=== PATIENT | male | born 1950 | race Caucasian/White ===

== ENCOUNTER 2020-05-17 14:21 | Emergency (ER) | payer MEDICARE, SELFPAY ==
--- NOTE | 2020-05-17 14:33 | ED.URI ---
HPI - URI/Sore Throat General Chief Complaint: Upper Respiratory Infection Stated Complaint: sore throat Time Seen by Provider: 05/17/20 14:40 Source: patient and RN notes reviewed Mode of arrival: ambulatory Limitations: no limitations History of Present Illness HPI Narrative: 70-year-old male presents with concern for sore throat. Reports sore throat for 4 days, taking Zyrtec and Benadryl. Denies fever, nasal congestion, ear pain, cough, shortness of breath. Reports rhinorrhea. MD elicited complaint: sore throat Related Data Home Medications Medication Instructions Recorded Confirmed carvedilol 12.5 mg tablet 12.5 mg PO Q12H 10/12/19 05/17/20 clopidogrel 75 mg tablet 75 mg PO DAILY 10/12/19 05/17/20 Allergies Allergy/AdvReac Type Severity Reaction Status Date / Time No Known Allergies Allergy Unknown Verified 04/16/20 13:57 Review of Systems Review of Systems: Narrative: CONSTITUTIONAL: Denies malaise, chills, sweats, or fever. EYES: Denies visual changes, redness, or discharge. ENT: Reports rhinorrhea, sore throat. Denies congestion, sinus pain, otalgia. CARDIOVASCULAR: Denies chest pain, palpitations, or edema. RESPIRATORY: Denies cough or dyspnea. GASTROINTESTINAL: Denies abdominal pain, nausea, vomiting, diarrhea SKIN: Denies rash or itching. MUSCULOSKELETAL: Denies myalgia. NEUROLOGIC: Denies headache. All systems reviewed & are unremarkable except as noted in HPI and below PMFSH Social History Social History Smoking status: Never smoker Second hand tobacco smoke exposure: Yes Alcohol intake: current Substance use: never Gender identity (if verbalized by the patient): Male Comments At time of signature, agree with nursing past medical, surgical, social and family history. There is no relevant family history pertinent to the presenting complaint Exam Narrative: Exam Narrative: GENERAL: Well-appearing, well-nourished, and in no acute distress. HEAD: Normocephalic EYES: PERRLA, conjunctivae clear ENT: Nares clear, turbinates edematous and erythematous, clear discharge, postnasal drainage. Mucous membranes moist. TM pearly gaines with dull light reflex bilaterally; no tragal tenderness. Oropharynx mildly erythematous without lesions. Tonsils not enlarged and without exudate, no drooling, no hoarseness, no trismus, uvula midline. NECK: Supple. No lymphadenopathy CHEST: Clear to auscultation, breath sounds equal. No wheezing, rhonchi, rales, or stridor. No respiratory distress, speaks in full sentences. HEART: Regular rate and rhythm. No murmur heard. SKIN: Warm, dry, no rash. NEURO: Alert and oriented x3. PSYCH: Normal mood and affect Course Course Emergency Course: Patient is aware of diagnosis, understands and agrees to treatment plan. Anticipatory guidance given. Patient agrees to follow-up as directed and is aware of reasons to seek care at the emergency department. Portions of this record may have been created with voice recognition software Vital Signs Vital signs: Vital Signs Temperature 96.0 F L 05/17/20 14:35 Pulse Rate 79 05/17/20 14:35 Respiratory Rate 16 05/17/20 14:35 Blood Pressure 158/81 H 05/17/20 14:35 Pulse Oximetry 98 05/17/20 14:35 Temperature 96.0 F L 05/17/20 14:35 Pulse Rate 79 05/17/20 14:35 Respiratory Rate 16 05/17/20 14:35 Blood Pressure 158/81 H 05/17/20 14:35 Pulse Oximetry 98 05/17/20 14:35 Reviewed. Patient has history of hypertension MDM - URI/Sore Throat MDM Narrative Medical decision making narrative: Differential diagnosis considered: Strep pharyngitis, allergic rhinitis, upper respiratory tract infection, sinusitis, rhinosinusitis, nasopharyngitis. viral pharyngitis, otitis media, otitis externa, pneumonia, bronchitis, viral cough syndrome, viral syndrome, and influenza. Exam findings show no acute concerns or changes; patient is non-toxic appearing and is in no dist
[2020-05-17 14:35] VITALS: BP 158/81; PULSE 79; RESP 16; TEMP 35.6; O2SAT 98
== END 2020-05-17 14:57 | disposition home or self-care (01) ==
PROVIDERS: Emergency Provider Nurse Practitioner; PCP Internal Medicine
DX: J02.9 Acute pharyngitis, unspecified (principal); I25.10 Atherosclerotic heart disease of native coronary artery without angina pectoris; Z95.5 Presence of coronary angioplasty implant and graft; E78.00 Pure hypercholesterolemia, unspecified; I10 Essential (primary) hypertension
CPT/HCPCS: 99213; G0463

== ENCOUNTER 2020-05-25 07:15 | Emergency (ER) | payer MEDICARE, SELFPAY ==
[2020-05-25 07:18] VITALS: BP 193/98; PULSE 89; RESP 18; TEMP 36.6; O2SAT 98
--- NOTE | 2020-05-25 07:58 | ED.MALEGU ---
HPI - Male Genitourinary General Chief complaint: Urogenital-Male Stated complaint: unable to urinate Time Seen by Provider: 05/25/20 07:38 History of Present Illness HPI Narrative: He has not been able to urinate since about 12 AM. He now has modate suprapubic pain and sensation that he needs to urinate. He has had similar symptoms in the past and require a zepeda catheter. Related Data Home Medications Medication Instructions Recorded Confirmed carvedilol 12.5 mg tablet 12.5 mg PO Q12H 10/12/19 05/17/20 clopidogrel 75 mg tablet 75 mg PO DAILY 10/12/19 05/17/20 Allergies Allergy/AdvReac Type Severity Reaction Status Date / Time No Known Allergies Allergy Unknown Verified 05/25/20 07:21 Review of Systems Review of Systems: All systems reviewed & are unremarkable except as noted in HPI and below Constitutional: Constitutional: Denies fever(s) Cardiovascular: Cardiovascular: Denies chest pain Respiratory: Respiratory: Denies dyspnea Gastrointestinal: Gastrointestinal: Reports abdominal pain Genitourinary: Genitourinary: Denies hematuria and Denies dysuria [facility] Past Medical History Medical History Enlarged prostate Surgical History Surgical History History of prostate surgery Family History Family History Mother Family history of malignant neoplasm of ovary, Onset Age: 65 Patient's mother is , Onset Age: 65 Father Patient's father is , Onset Age: 70 Other Family history of allergic disorder Hypertension Social History Social History Smoking status: Never smoker Second hand tobacco smoke exposure: Yes Alcohol intake: current Substance use: never Gender identity (if verbalized by the patient): Male Exam Const: General: healthy appearing, no acute distress and alert Orientation/consciousness: patient oriented x3 HENMT: Head: normal to inspection Neck: Neck: normal visual inspection and no lymphadenopathy Chest: Chest palpation & inspection: no tenderness Resp: Effort & Inspection: normal respiratory effort Auscultation: clear to auscultation bilaterally, no rales, no rhonchi and no wheezes Cardio: Jugular venous distension: no JVD Rate: regular rate Rhythm: regular rhythm Heart sounds: no murmurs GI: Inspection: non-distended GI Palp: Yes Soft to palpation : General: Yes Bladder palpation abnormal distended and tender Skin: General skin exam: normal color Neuro: General: patient oriented x3 and moves all extremities Speech: normal speech Extrem: General: no edema Psych: Appearance: well kempt Affect: normal affect Course Vital Signs Vital signs: Vital Signs Temperature 36.6 C 05/25/20 07:18 Pulse Rate 89 05/25/20 07:18 Respiratory Rate 18 05/25/20 07:18 Blood Pressure 193/98 H 05/25/20 07:18 Pulse Oximetry 98 05/25/20 07:18 Temperature 36.6 C 05/25/20 07:18 Pulse Rate 86 05/25/20 10:48 Respiratory Rate 14 05/25/20 10:48 Blood Pressure 191/85 H 05/25/20 10:48 Pulse Oximetry 98 05/25/20 10:48 MDM - Male Genitourinary MDM Narrative Medical decision making narrative: Catheterization was attempted by the nurse. I asked for a larger size catheter and was told that we did not have any in the hospital. I called to consult the urologist and he said that if we do not have any there would be no point in him coming in. Eventually a larger size catheter was obtained. By that time the patient had gottent dressed and left the emergency department. Discharge Plan Discharge Clinical Impression: BPH with urinary obstruction Patient Disposition: [facility]op[facility] Ater Seen by Prov Condition: Stable Prescriptions: No Action ipratropium bromide 0.03 % spray,non-
--- NOTE | 2020-05-25 09:00 | PC.NURSE ---
Attempted to place zepeda catheter with 16Fr, without success. Attempted to use coude, without success. EDP made aware.
[2020-05-25 10:48] VITALS: BP 191/85; PULSE 86; RESP 14; O2SAT 98
--- NOTE | 2020-05-25 11:17 | PC.NURSE ---
Went to room to give bedside report to oncoming nurse, patient gone along with belongings. warehouse guard confirmed patient walked out fully dressed at approx 1105. EDP made aware.
== END 2020-05-25 11:22 ==
PROVIDERS: Emergency Provider Emergency Medicine; PCP Internal Medicine
DX: N40.1 Benign prostatic hyperplasia with lower urinary tract symptoms (principal); N13.8 Other obstructive and reflux uropathy
CPT/HCPCS: 51702; 99283

== ENCOUNTER 2021-05-25 17:52 | Emergency (ER) | payer MEDICARE, SELFPAY ==
[2021-05-25] VITALS (7 sets, daily range): BP systolic 150–197; BP diastolic 80–110; PULSE 59–64; RESP 12–20; TEMP 36.7; O2SAT 97–100
--- NOTE | 2021-05-25 18:25 | ECG_ITS ---
Measurements Intervals [place] Rate: 59 P: 63 TN: 169 QRS: 10 QRSD: 84 T: 79 QT: 424 QTc: 421 Interpretive Statements SINUS BRADYCARDIA BORDERLINE ST-T WAVE ABNORMALITY- ANTEROLAT/HIGH LAT LEADS BORDERLINE ECG Electronically Signed On 05-26-2021 9:28:54 CDT by Jc Ashton D.O.
[2021-05-25 18:46] LABS: Basophils Absolute Auto 0.1 K/mm3 (0.0-0.1); Basophils Percent Auto 0.8 % (0.2-1.2); Eosinophils Absolute Auto 0.4 K/mm3 (0-0.3); Eosinophils Percent Auto 6.1 % (0-4.4); Hematocrit 31.5 % (42.0-52.0); Hemoglobin 10.7 g/dL (14.0-18.0); Immature Granulocyte Absolute 0.02 K/mm3 (0.00-0.031); Immature Granulocyte Percent A 0.3 % (0-0.5); Lymphocytes Absolute Auto 1.04 K/mm3 (0.9-3.2); Lymphocytes Percent Auto 15.9 % (18.3-44.2); Mean Corpuscular Hemoglobin 32.7 pg (26-34); Mean Corpuscular Volume 96.3 fl (80-100); Mean Platelet Volume 10.1 fl (7.4-10.4); Monocytes Absolute Auto 0.5 K/mm3 (0.1-0.6); Neutrophils Absolute Auto 4.5 K/mm3 (1.3-6.7); Neutrophils Percent Auto 68.9 % (45.5-73.1); Platelet Count Result 164 k/mm3 (150-375); Red Blood Count 3.27 M/mm3 (4.6-6.20); Red Cell Distribution Width 13.2 % (11.5-14.5); White Blood Count 6.5 K/mm3 (4.5-10.0)
[2021-05-25 18:58] LABS: Alanine Aminotransferase 15 U/L (4-50); Albumin Level 3.8 g/dL (3.5-5.1); Alkaline Phosphatase 96 U/L (38-126); Anion Gap 9 mmol/L (8-16); Aspartate Amino Transferase 33 U/L (17-59); Bilirubin,Total 0.5 mg/dL (0.2-1.3); Blood Urea Nitrogen 14 mg/dL (9-20); Calcium 9.1 mg/dL (8.4-10.2); Carbon Dioxide 28 mmol/L (22-30); Chloride 104 mmol/L (98-107); Estimated CRCL calculation 58 ml/min; Estimated Glomerular Filt Rate > 60; Glucose 127 mg/dL (75-110); Potassium 3.1 mmol/L (3.4-5.0); Sodium 141 mmol/L (137-145)
[2021-05-25] MEDS: POTASSIUM CHLORIDE 20 MEQ TABLET 40 MEQ PO (22:27)
[2021-05-25] MEDS: KCL 20 MEQ/SW 100 ML 100 ML 50 MEQ IVPB (22:28)
--- NOTE | 2021-05-25 23:36 | ED.GENADULT ---
HPI - General Adult General Chief complaint: Recheck/Abnormal Lab/Rx Stated complaint: Low Potassium level Time Seen by Provider: 05/25/21 22:02 History of Present Illness HPI narrative: Patient is a 69-year-old gentleman who presents emerged from chief complaint of hyperkalemia. Patient reports that he had blood drawn today since he been receiving IV antibiotics as an outpatient. Patient reports that they called him and told him that his potassium was two-point something and she go to the emergency department to have his potassium treated. Currently the patient states he is not having any symptoms with this denies any complaint. Related Data Home Medications Medication Instructions Recorded Confirmed carvedilol 12.5 mg tablet 12.5 mg PO Q12H 10/12/19 12/24/20 clopidogrel 75 mg tablet 75 mg PO DAILY 10/12/19 12/24/20 Allergies Allergy/AdvReac Type Severity Reaction Status Date / Time No Known Allergies Allergy Unknown Verified 05/25/21 20:22 Review of Systems Review of Systems: Narrative: A 10 system review of systems was completed on the patient and is negative except for what is stated in the HPI. Nursing and ancillary documentation was reviewed. [facility] Past Medical History Medical History (Updated 05/25/21 @ 23:38 by Devonte Carrillo MD) Enlarged prostate Surgical History Surgical History History of prostate surgery Family History Family History Mother Family history of malignant neoplasm of ovary, Onset Age: 65 Patient's mother is , Onset Age: 65 Father Patient's father is , Onset Age: 70 Other Family history of allergic disorder Hypertension Social History Social History Smoking status: Never smoker Second hand tobacco smoke exposure: Yes Alcohol intake: current Substance use: never Gender identity (if verbalized by the patient): Male Exam Narrative: Exam Narrative: GENERAL: Well-appearing, well-nourished, and in no acute distress. HEAD: Normocephalic, atraumatic. EYES: PERRLA and EOMI. ENT: Nares clear, no rhinorrhea or epistaxis. Mucous membranes moist. NECK: Supple. CHEST: Clear to auscultation. No respiratory distress. HEART: Regular rate and rhythm. No murmur heard. Normal peripheral pulses. ABDOMEN: Soft, nontender, nondistended, normal active bowel sounds. EXTREMITIES: Normal range of motion. No edema. There is a PICC line present in the right upper extremity SKIN: Warm, dry, no rash. NEURO: No focal deficits. Alert and oriented x3. PSYCH: Normal mood and affect. Course Vital Signs Vital signs: Vital Signs Temperature 36.7 C 05/25/21 18:20 Pulse Rate 59 L 05/25/21 18:20 Respiratory Rate 16 05/25/21 18:20 Blood Pressure 150/110 H 05/25/21 18:20 Pulse Oximetry 99 05/25/21 18:20 Temperature 36.7 C 05/25/21 20:19 Pulse Rate 62 05/25/21 22:35 Respiratory Rate 12 05/25/21 22:35 Blood Pressure 197/85 H 05/25/21 22:35 Pulse Oximetry 100 05/25/21 22:35 Medical Decision Making Vital Signs Vital Signs: Vital Signs Temperature 36.7 C 05/25/21 18:20 Pulse Rate 59 L 05/25/21 18:20 Respiratory Rate 16 05/25/21 18:20 Blood Pressure 150/110 H 05/25/21 18:20 Pulse Oximetry 99 05/25/21 18:20 Temperature 36.7 C 05/25/21 20:19 Pulse Rate 62 05/25/21 22:35 Respiratory Rate 12 05/25/21 22:35 Blood Pressure 197/85 H 05/25/21 22:35 Pulse Oximetry 100 05/25/21 22:35 Lab Data Result diagrams: 05/25/21 18:38 05/25/21 18:38 Labs: Lab Results 05/25/21 05/25/21 Range/Units 18:38 18:38 WBC 6.5 (4.5-10.0) K/mm3 RBC 3.27 L (4.6-6.20) M/mm3 Hgb 10.7 L (14.0-18.0) g/dL Hct 31.5 L (42.0-52.0) % MCV 96.3 (80-100) fl MCH 3
[2021-05-26 00:54] VITALS: BP 195/98; PULSE 78; RESP 18; O2SAT 100
== END 2021-05-26 00:55 | disposition home or self-care (01) ==
PROVIDERS: Emergency Medicine; Emergency Provider Emergency Medicine; PCP Internal Medicine
DX: E87.6 Hypokalemia (principal); I25.10 Atherosclerotic heart disease of native coronary artery without angina pectoris; I10 Essential (primary) hypertension
CPT/HCPCS: 36415; 80053; 85025; 93005; 96365; 96366; 99284; A9270; J3480

== ENCOUNTER 2022-03-15 16:51 | Observation (INO) | payer MEDICARE, SELFPAY ==
[2022-03-15] VITALS (16 sets, daily range): BP systolic 78–156; BP diastolic 47–106; PULSE 64–76; RESP 11–21; TEMP 36.4–36.7; O2SAT 95–100
--- NOTE | ~2022-03-15 | US_ITS ---
EXAMINATION: US renal BI DATE: 03/16/2022 08:26 INDICATION: Acute kidney injury. TECHNIQUE: Multiple ultrasound grayscale images of the kidneys were obtained. COMPARISON: CT abdomen and pelvis 04/10/2015 FINDINGS: The right kidney measures 11.8 x 4.6 x 6.3 cm. The left kidney measures 12.1 x 4.0 x 6.6 cm. The kidn eys demonstrate normal parenchymal echogenicity. There is no hydronephrosis. The bladder is normal. T he prostate is moderately enlarged. IMPRESSION: 1. Normal kidneys. No hydronephrosis. 2. Moderately enlarged prostate. Reviewed, dictated and finalized at location A.
--- NOTE | 2022-03-15 17:40 | ECG_ITS ---
Measurements Intervals [place] Rate: 71 P: 7 ND: 147 QRS: 32 QRSD: 89 T: 57 QT: 406 QTc: 443 Interpretive Statements SINUS RHYTHM MINIMAL ST DEPRESSION [0.025+ mV ST DEPRESSION] COMPARED TO ECG 05/25/2021 18:31:00 SINUS RHYTHM NOW PRESENT Nonspecific ST (T WAVE) DEVIATION NOW PRESENT Electronically Signed On 03-17-2022 13:10:30 CDT by Renetta Fowler M.D.
[2022-03-15] MEDS: SODIUM CHLORIDE 0.9% IV 1,000 ML 999 ML (17:43)
[2022-03-15 17:48] LABS: Basophils Percent Auto 0.2 % (0.2-1.2); Eosinophils Percent Auto 0.3 % (0-4.4); Hematocrit 42.3 % (42.0-52.0); Hemoglobin 14.3 g/dL (14.0-18.0); Immature Granulocyte Absolute 0.01 K/mm3 (0.00-0.031); Immature Granulocyte Percent A 0.2 % (0-0.5); Lymphocytes Percent Auto 15.2 % (18.3-44.2); Mean Corpuscular HGB Conc 33.8 g/dl (32-36); Mean Corpuscular Hemoglobin 36.5 pg (26-34); Mean Corpuscular Volume 107.9 fl (80-100); Monocytes Absolute Auto 1.1 K/mm3 (0.1-0.6); Monocytes Percent Auto 18.2 % (2.6-8.5); Neutrophils Absolute Auto 3.9 K/mm3 (1.3-6.7); Neutrophils Percent Auto 65.9 % (45.5-73.1); Platelet Count Result 165 k/mm3 (150-375); Red Blood Count 3.92 M/mm3 (4.6-6.20); White Blood Count 5.9 K/mm3 (4.5-10.0)
[2022-03-15 17:56] LABS: Lactic Acid Reflex 1.3 mmol/L (0.7-2.1)
[2022-03-15 17:58] LABS: Alanine Aminotransferase 43 U/L (4-50); Albumin Level 4.7 g/dL (3.5-5.1); Alkaline Phosphatase 101 U/L (38-126); Anion Gap 15 mmol/L (8-16); Aspartate Amino Transferase 81 U/L (17-59); Bilirubin,Total 0.7 mg/dL (0.2-1.3); Blood Urea Nitrogen 29 mg/dL (9-20); Calcium 9.2 mg/dL (8.4-10.2); Carbon Dioxide 20 mmol/L (22-30); Chloride 101 mmol/L (98-107); Estimated CRCL calculation 27 ml/min; Estimated Glomerular Filt Rate 27; Glucose 117 mg/dL (65-110); Lipase 320 U/L (23-300); Potassium 3.7 mmol/L (3.4-5.0); Sodium 136 mmol/L (137-145)
--- NOTE | 2022-03-15 18:24 | ED.NAVMDI ---
HPI - Nausea/Vomiting/Diarrhea General Chief complaint: Nausea/Vomiting/Diarrhea Stated complaint: N/V/D Time Seen by Provider: 03/15/22 17:42 Source: patient Mode of arrival: ambulatory Limitations: no limitations History of Present Illness HPI Narrative: Patient is a 72-year-old male complaining of nausea, vomiting, and diarrhea that started 4 to 5 days ago. Patient describes his vomitus as nonbilious nonbloody. Patient's diarrhea is loose watery nonbloody. Patient states that he also recently started taking antibiotics 5 days ago for a infection . Patient denies any abdominal pain, urinary symptoms, fever or chills. Patient denies any chest pain or shortness of breath. Patient has had positive sick contact, had similar symptoms 2 weeks ago. Related Data Home Medications Medication Instructions Recorded Confirmed clopidogrel 75 mg tablet 75 mg PO DAILY 10/12/19 10/13/21 Allergies Allergy/AdvReac Type Severity Reaction Status Date / Time No Known Allergies Allergy Unknown Verified 10/13/21 14:10 Review of Systems Review of Systems: All systems reviewed & are unremarkable except as noted in HPI and below Constitutional: Constitutional: Denies body ache(s), Denies chills, Denies excessive sweating, Denies fatigue, Denies fever(s), Denies headache(s), Denies lethargy, Denies malaise, Denies weakness and Denies weight loss Eyes: Eyes: Denies blurry vision, Denies change in vision and Denies loss of vision ENT: Denies dizziness, Denies ear discharge, Denies headache(s), Denies lip swelling, Denies epistaxis, Denies nasal congestion, Denies neck pain, Denies throat swelling and Denies tongue swelling Cardiovascular: Cardiovascular: Denies chest pain, Denies chest pain at rest, Denies chest pain with activity, Denies diaphoresis, Denies rapid heart rate, Denies edema, Denies irregular heart rhythm, Denies lightheadedness, Denies palpitations, Denies dyspnea and Denies dyspnea on exertion Respiratory: Respiratory: Denies chest congestion, Denies cough, Denies hemoptysis, Denies dyspnea and Denies dyspnea on exertion Gastrointestinal: Gastrointestinal: Denies abdominal pain, Denies melena, Denies hematochezia and Denies hematemesis Musculoskeletal: Musculoskeletal: Denies abnormal gait, Denies deformity, Denies joint swelling, Denies limited range of motion, Denies neck pain and Denies numbness Neurologic: Denies Abnormal speech present, Denies abnormal gait, Denies confusion, Denies dizziness, Denies headache(s), Denies focal weakness, Denies loss of vision, Denies numbness, Denies Other visual disturbances, Denies Sensory deficit (Neuro) and Denies weakness Psychiatric: Psychiatric: Denies confusion, Denies depression, Denies auditory hallucinations, Denies homicidal ideation and Denies suicidal ideation Endocrine: Endocrine: Denies cold intolerance, Denies excessive sweating, Denies fatigue, Denies heat intolerance and Denies palpitations Hematologic/Lymphatic: Hematologic/Lymphatic: Denies easy bleeding and Denies easy bruising Allergic/Immunologic: Allergic/Immunologic: Denies lip swelling, Denies throat swelling and Denies tongue swelling PMFSH Past Medical History Medical History (Updated 03/15/22 @ 19:24 by Kevin Kemp MD) Enlarged prostate Surgical History Surgical History History of prostate surgery Family History Family History Mother Family history of malignant neoplasm of ovary, Onset Age: 65 Patient's mother is , Onset Age: 65 Father Patient's father is , Onset Age: 70 Other Family history of allergic disorder Hypertension Social History Social History Smoking status: Never smoker Second hand tobacco smoke exposure: Yes Alcohol intake: current Substance use: never Gen
[2022-03-15] MEDS: ONDANSETRON INJ 4 MG/2 ML VIAL IV PUSH (18:57)
[2022-03-15] MEDS: LACTATED RINGERS 1,000 ML 999 ML IV CONT (18:57)
--- NOTE | 2022-03-15 19:48 | PM.IMHP ---
H&P: HPI History of Present Illness Date/Time: 03/15/22 19:48 Chief Complaint: Diarrhea Narrative: This is a 72-year-old male past medical history significant for dyslipidemia, hypertension, benign prostatic hyperplasia. Patient presented to the emergency room due to diarrhea and dizziness for several days , has been taking a course of amoxicillin for a dental procedure and started having diarrhea, numerous bowel movements a day ,watery ,no blood or phlegm present in it ,no abdominal cramps, no fevers ,rigors or chills. Today prior to presenting to the emergency room patient was feeling dizzy, no syncope or near-syncope episode. Preliminary workup was significant for creatinine of 2.4. Rest of the workup was essentially nonrevealing. Patient has been admitted for further evaluation management and treatment. Review of Systems Review of Systems: Diarrhea for several days, dizziness. Constitutional: Constitutional: Denies chills, Denies fatigue, Denies fever(s), Denies malaise, Denies night sweats, Denies poor appetite and Reports weakness Eyes: Eyes: Denies change in vision ENT: Denies dysphagia, Reports dizziness, Denies nasal congestion, Denies nasal discharge, Denies nasal obstruction and Denies odynophagia Cardiovascular: Cardiovascular: Denies chest pain, Denies radiating jaw, neck or arm pain, Denies palpitations, Denies dyspnea on exertion and Denies orthopnea Respiratory: Respiratory: Denies cough and Denies excessive phlegm production Gastrointestinal: Gastrointestinal: Denies abdominal pain, Denies dyspepsia, Denies heartburn, Reports diarrhea, Denies nausea and Denies vomiting Genitourinary: Genitourinary: Denies dysuria Musculoskeletal: Musculoskeletal: Denies muscle weakness Integumentary/Breasts: Skin/Breast: Denies rash Neurologic: Denies focal weakness and Denies Sensory deficit (Neuro) Psychiatric: Psychiatric: Reports no additional psychiatric complaints and Reports as per HPI Endocrine: Endocrine: Denies cold intolerance, Denies heat intolerance, Denies polyphagia, Denies polydipsia and Denies palpitations Hematologic/Lymphatic: Hematologic/Lymphatic: Reports no additional hematologic/lymphatic complaints and Reports as per HPI Allergic/Immunologic: Allergic/Immunologic: Reports no additional allergic/immunologic complaints and Reports as per HPI [facility] Past Medical History Medical History (Updated 03/16/22 @ 02:43 by Kelsie Paul MD) Enlarged prostate Surgical History Surgical History History of prostate surgery Family History Family History Mother Family history of malignant neoplasm of ovary, Onset Age: 65 Patient's mother is , Onset Age: 65 Father Patient's father is , Onset Age: 70 Other Family history of allergic disorder Hypertension Social History Social History Smoking status: Never smoker Second hand tobacco smoke exposure: Yes Alcohol intake: current Drinks per week: 2 Substance use: never Gender identity (if verbalized by the patient): Male Spiritual care concerns: No Meds Home Medications and Allergies Home Medications Medication Instructions Recorded Confirmed Type clopidogrel 75 mg tablet 75 mg PO DAILY 10/12/19 03/15/22 History potassium chloride 20 meq PO BID #14 tablet 05/25/21 03/15/22 Rx carvedilol 25 mg tablet 25 mg PO Q12H #180 tablet 10/13/21 03/15/22 Rx sertraline 50 mg tablet 50 mg PO DAILY #90 tablet 12/05/21 03/15/22 Rx atorvastatin 40 mg tablet 40 mg PO DAILY #90 tablet 12/30/21 03/15/22 Rx lisinopril 40 mg tablet 40 mg PO DAILY #90 tablet 01/12/22 03/15/22 Rx amoxicillin 500 mg PO Q8H 03/15/22 03/15/22 History tamsulosin 0.4 mg PO DAILY 03/15/22 03/15/22 History Allergies Allergy/AdvReac Type Severity Reaction Status Chidi
[2022-03-15] MEDS: LACTATED RINGERS 1,000 ML 125 ML IV CONT (20:21)
--- NOTE | 2022-03-15 22:17 | PC.NURSE ---
This patient, Vadim Evangelista, was admitted to Medical Room 342-01. Patient/family oriented to hospital policies and general routines including ID bracelet, bed and alarms, visiting hours, pain management, procedures, bathroom and other care routines, personal items, smoking policy, room service/diet, and visiting hours. Information on how to activate the Rapid Response Team has been discussed. Patient/Family are encouraged to report perceived risks to care and to ask questions if they do not understand what they are told or what they should do.
[2022-03-16] MEDS: ACETAMINOPHEN 500 MG TABLET 1000 MG PO ×2 (04:17→11:15)
[2022-03-16] MEDS: LACTATED RINGERS 1,000 ML 125 ML IV CONT (04:48)
[2022-03-16 06:00] VITALS: BP 147/71; PULSE 71; RESP 18; TEMP 36.7; O2SAT 97
[2022-03-16 06:20] LABS: Basophils Percent Auto 0.5 % (0.2-1.2); Eosinophils Percent Auto 0.8 % (0-4.4); Hematocrit 34.3 % (42.0-52.0); Hemoglobin 11.7 g/dL (14.0-18.0); Lymphocytes Absolute Auto 0.96 K/mm3 (0.9-3.2); Lymphocytes Percent Auto 24.6 % (18.3-44.2); Mean Corpuscular HGB Conc 34.1 g/dl (32-36); Mean Corpuscular Hemoglobin 36.4 pg (26-34); Mean Corpuscular Volume 106.9 fl (80-100); Mean Platelet Volume 9.7 fl (7.4-10.4); Monocytes Absolute Auto 0.8 K/mm3 (0.1-0.6); Monocytes Percent Auto 21.3 % (2.6-8.5); Neutrophils Absolute Auto 2.1 K/mm3 (1.3-6.7); Neutrophils Percent Auto 52.8 % (45.5-73.1); Platelet Count Result 104 k/mm3 (150-375); Red Blood Count 3.21 M/mm3 (4.6-6.20); Red Cell Distribution Width 14.6 % (11.5-14.5); White Blood Count 3.9 K/mm3 (4.5-10.0)
[2022-03-16 06:33] LABS: Anion Gap 10 mmol/L (8-16); Blood Urea Nitrogen 28 mg/dL (9-20); Carbon Dioxide 20 mmol/L (22-30); Chloride 106 mmol/L (98-107); Estimated CRCL calculation 57 ml/min; Estimated Glomerular Filt Rate > 60; Glucose 84 mg/dL (65-110); Phosphorus 3.6 mg/dL (2.5-4.5); Potassium 3.9 mmol/L (3.4-5.0); Sodium 136 mmol/L (137-145)
[2022-03-16 07:14] LABS: Add Urine Microscopic? YES; Appearance Urine Cloudy (Clear); Bilirubin Urine Negative (Negative); Blood Urine 1+ (Negative); Color Urine Yellow (Yellow); Glucose Urine UA Negative (Negative); Hyaline Casts Urine 30-49 /lpf; Ketones Urine 1+ mg/dL (Negative); Leukocyte Esterase Ur Negative LEU/UL (Negative); Mucus Urine Rare /lpf; Nitrate Urine Negative (Negative); Protein Urine 1+ mg/dL (Negative); RBC Urine 0-2 /hpf (0-2); Specific Grav Ur 1.019 (1.001-1.035); Squamous Epithelial Cell Urine Rare /hpf (Few); Urobilinogen Urine Negative mg/dL (<2.0)
[2022-03-16 07:34] LABS: Toxigenic C. Diff NEGATIVE (NEGATIVE)
[2022-03-16 08:00] VITALS: PULSE 71; RESP 18; O2SAT 97
[2022-03-16] MEDS: ATORVASTATIN 40 MG TABLET PO (08:42)
[2022-03-16] MEDS: CLOPIDOGREL BISULFATE 75 MG TABLET PO (08:42)
[2022-03-16] MEDS: carvediloL 25 MG TABLET PO (08:42)
[2022-03-16] MEDS: TAMSULOSIN HCL 0.4 MG CAPSULE PO (08:42)
[2022-03-16] MEDS: SERTRALINE HCL 50 MG TABLET PO (08:42)
--- NOTE | 2022-03-16 13:08 | PM.DS ---
DS: Admitting Diagnosis Discharge Date 03/16/22 Admitting Diagnosis KIKE DS: Discharge Diagnosis Discharge Diagnosis (1) Gastroenteritis: Code(s): K52.9 - Noninfective gastroenteritis and colitis, unspecified Status: Acute Assessment and Plan: - recently diagnosed with norovirus and had similar symptoms -pt also recently started a course of Amoxicillin for an ear infection -symptoms are resolving, no N/V/abd pain. Still some diarrhea but it is improving -no fevers or leukocytosis -vitals stable, pt non toxic appearing, will continue supportive care at home. -I suspect the main culprit of his diarrhea to be due to norovirus, however very well could have been exacerbated by the Amoxicillin. I advised patient to continue taking his antibiotic (only has 2 days left) and monitor for recurrence of symptoms. If symptoms return he should stop the medication and call his pcp. If symptoms do not return then it was likely the norovirus more than the amoxicillin and he can complete the course. -All questions and concerns addressed with patient. He will follow up with his pcp. Return precautions provided. (2) Acute kidney injury: Code(s): N17.9 - Acute kidney failure, unspecified Status: Acute Assessment and Plan: -Likely to be pre renal azotemia secondary to dehydration/diarrhea -creat 2.4 on admission -Lisinopril was held -Renal US w/ normal kidneys -Repeat BMP today after IVF hydration is 1.1 -stable for discharge, can resume lisinopril, stressed importance of staying hydrated (3) Essential (primary) hypertension: Code(s): I10 - Essential (primary) hypertension Status: Acute Assessment and Plan: -stable -held lisinopril but will resume on discharge now that KIKE is resolved -Continued carvedilol (4) BPH with urinary obstruction: Code(s): N40.1 - Benign prostatic hyperplasia with lower urinary tract symptoms; N13.8 - Other obstructive and reflux uropathy Status: Acute Assessment and Plan: -continue tamsulosin -enlarged prostate noted on renal US DS: Summary Hospital Course Reason for hospitalization: 72-year-old male past medical history significant for dyslipidemia, hypertension, benign prostatic hyperplasia, admitted for KIKE. Please see HPI for further details. Hospital Course: Please see above for details of hospital course. Status at Discharge Cognitive/behavioral status at discharge: stable Functional status at discharge: independent ambulation Overall status at discharge: patient is progressing back to baseline Time Spent with Patient Time attestation: Total time spent providing and/or coordinating discharge services: 32 Time spent: Greater than 30 minutes Exam Narrative: General: No acute distress, non toxic appearing Eyes: PERRL, no scleral icterus HEENT: NCAT, external ears normal, MMM Respiratory: No respiratory distress, Lungs CTA bilaterally, no wheezing Cardiovascular: RRR, no murmur Abdominal: Soft, nontender, non distended, no rebound or guarding Musculoskeletal: Moves all 4 extremities, no edema Neurological: A/Ox3, speech clear, no facial asymmetry Skin: Warm, dry, no rashes Psychiatric: Normal affect, normal mood DS: Data Data Completed and Pending Labs on day of discharge: Labs from last 24 hours 03/16/22 03/16/22 03/16/22 06:35 06:35 06:31 WBC RBC Hgb Hct MCV MCH MCHC RDW Plt Count MPV Immature Gran % (Auto) Neut % (Auto) Lymph % (Auto) Cherry % (Auto) Eos % (Auto) Baso % (Auto) Lymph # (Auto) Cherry # (Auto) Eos # (Auto) Baso # (Auto) Abs Immat Gran (auto) Absolute Neuts (auto) Absolute Nucleated RBC Nucleated RBC % Sodium Potassium Chloride Carbon Dioxide Anion Gap BUN Creatinine Estim Creat Clear Calc Estimated GFR Glucose Lactic Acid Calcium Phosphorus
--- NOTE | 2022-03-26 08:38 | PC.NURSE ---
Stool studies are negative.
== END 2022-03-16 15:50 | disposition home or self-care (01) ==
LOC: ANHED 19:24 → ANH3MED 20:50
PROVIDERS: Emergency Medicine; Admitting Provider Internal Medicine; Emergency Provider Emergency Medicine; PCP Internal Medicine; Visit Provider Family Medicine
DX: K52.9 Noninfective gastroenteritis and colitis, unspecified (principal); N17.9 Acute kidney failure, unspecified; E78.5 Hyperlipidemia, unspecified; I10 Essential (primary) hypertension; N40.1 Benign prostatic hyperplasia with lower urinary tract symptoms; N13.8 Other obstructive and reflux uropathy
CPT/HCPCS: 36415; 76775; 80048; 80053; 81001; 83605; 83690; 83735; 84100; 85025; 87086; 87177; 87209; 87493; 89055; 93005; 96361; 96374; 99285; A9270; G0378; J2405; J7030; J7120

== ENCOUNTER 2022-10-19 15:57 | Emergency (ER) | payer MEDICARE, SELFPAY ==
--- NOTE | ~2022-10-19 | CT_ITS ---
EXAMINATION: CT BRAIN W/O DATE: 10/19/2022 16:20 INDICATION: Status post fall. Laceration to the back of the head. TECHNIQUE: Computed tomography (CT) of the head was performed without intravenous contrast. The dose- length product was 605.33 mGy-cm. Automated exposure control and iterative reconstruction technique w ere employed. COMPARISON: CT dated 09/11/2019 FINDINGS: Normal brain parenchymal volume for age. Normal gaines-white differentiation. No acute intrac ranial hemorrhage, infarction, mass or mass effect. There is focal scalp hematoma at the parietal dayo leatha. No underlying depressed skull fracture. No ventriculomegaly or midline shift. Midline sagittal images demonstrate a normal corpus callosum, c raniovertebral junction and sella turcica. Basilar cisterns are patent. Paranasal sinuses and mastoids are pneumatized. No depressed skull fractures. IMPRESSION: 1. No acute intracranial abnormality. Reviewed, dictated and finalized at location A. R POOL CLERK
[2022-10-19 16:01] VITALS: BP 131/69; PULSE 57; RESP 18; TEMP 36.2; O2SAT 100
[2022-10-19 18:14] VITALS: BP 147/72; PULSE 55; RESP 16; O2SAT 100
--- NOTE | 2022-10-19 18:16 | ED.HEATRA ---
HPI - Head Injury General Chief complaint: Head Injury Stated complaint: fall, head injury Time Seen by Provider: 10/19/22 18:10 History of Present Illness HPI Narrative: Pt pulling on wishbone with grandson and it broke and he fell backward and struck head on corner of table. Pt denies LOC or LIND. Pt is on blood thinner. Pt denies other injury. Pt unsure of last tetanus. Pt sustained cut to back of head. Related Data Home Medications Medication Instructions Recorded Confirmed clopidogrel 75 mg tablet (Plavix) 75 mg PO DAILY 10/12/19 04/12/22 tamsulosin 0.4 mg capsule 0.4 mg PO DAILY 03/15/22 04/12/22 Allergies Allergy/AdvReac Type Severity Reaction Status Date / Time No Known Allergies Allergy Unknown Verified 07/28/22 14:20 Review of Systems Review of Systems: All systems reviewed & are unremarkable except as noted in HPI and below PMFSH Past Medical History Medical History (Updated 10/19/22 @ 18:48 by Cliff Jaramillo III, DO) Enlarged prostate Surgical History Surgical History History of prostate surgery Family History Family History Mother Family history of malignant neoplasm of ovary, Onset Age: 65 Patient's mother is , Onset Age: 65 Father Patient's father is , Onset Age: 70 Other Family history of allergic disorder Hypertension Social History Social History Smoking status: Never smoker Second hand tobacco smoke exposure: Yes Alcohol intake: current Drinks per week: 2 Substance use: never Gender identity (if verbalized by the patient): Male Spiritual care concerns: No Exam Const: General: healthy appearing Nutritional Appearance: well nourished Orientation/consciousness: patient oriented x3 Limitations: no limitations HENMT: Head: laceration (occiput skin tear not gaping bleeding controlled) Eyes: Conjunctivae: conjunctivae normal Pupils: Equal, round and reactive pupils present EOM: EOMs intact bilaterally Neck: Neck: normal visual inspection, no lymphadenopathy and no meningeal signs Other: no midline pain Resp: Effort & Inspection: normal respiratory effort Auscultation: clear to auscultation bilaterally Cardio: Rate: regular rate Rhythm: regular rhythm GI: GI Palp: Yes Soft to palpation Auscultation: normal bowel sounds Skin: General skin exam: normal color Rashes: no rashes Neuro: General: patient oriented x3, moves all extremities, no meningeal signs and no focal motor deficits Speech: normal speech Extrem: General: normal to inspection and no clubbing, cyanosis or edema Psych: Mental Status: mental status grossly normal Affect: normal affect Attitude: cooperative Course Course Emergency Course: since appears to be skin tear and can't get the wound to open applied steri strips Vital Signs Vital signs: Vital Signs Temperature 97.1 F L 10/19/22 16:01 Pulse Rate 57 L 10/19/22 16:01 Respiratory Rate 18 10/19/22 16:01 Blood Pressure 131/69 10/19/22 16:01 Pulse Oximetry 100 10/19/22 16:01 Temperature 97.1 F L 10/19/22 16:01 Pulse Rate 55 L 10/19/22 18:14 Respiratory Rate 16 10/19/22 18:14 Blood Pressure 147/72 H 10/19/22 18:14 Pulse Oximetry 100 10/19/22 18:14 Oxygen Delivery Room Air 10/19/22 18:14 Discharge Plan Discharge Clinical Impression: Head injury, Skin tear Patient Disposition: Home, Self-Care Condition: Stable Prescriptions: No Action clopidogrel [Plavix] 75 mg tablet 75 mg PO DAILY Hold Instructions: Patient no longer taking amlodipine 5 mg tablet 5 mg PO DAILY Qty: 90 1RF tamsulosin 0.4 mg capsule 0.4 mg PO DAILY lisinopril 40 mg tablet 40 mg PO DAILY Qty: 90 1RF carvedilol 25 mg tablet 25 mg PO Q12H Qty: 180 1RF Rx Instruction
[2022-10-19] MEDS: TETANUS,DIPHTHERIA,AC PERTUSSIS ADULT (0.5 ML) BOOSTRIX IM (18:22)
== END 2022-10-19 19:02 | disposition home or self-care (01) ==
PROVIDERS: Emergency Provider Emergency Medicine; PCP Internal Medicine
DX: S01.01XA Laceration without foreign body of scalp, initial encounter (principal); Z23 Encounter for immunization; N40.0 Benign prostatic hyperplasia without lower urinary tract symptoms; Z77.22 Contact with and (suspected) exposure to environmental tobacco smoke (acute) (chronic); Z79.02 Long term (current) use of antithrombotics/antiplatelets; W22.03XA Walked into furniture, initial encounter
CPT/HCPCS: 70450; 90471; 90715; 99284

== ENCOUNTER 2023-08-30 00:21 | Day surgery (SDC) | payer MEDICARE, SELFPAY ==
[2023-08-19 11:54] VITALS: BMI 31.4
[2023-08-30 09:51] VITALS: BP 157/49; PULSE 64; RESP 16; TEMP 36.2; O2SAT 97; BMI 32.4
[2023-08-30] MEDS: LACTATED RINGERS 1,000 ML 150 ML IV CONT (10:00)
--- NOTE | 2023-08-30 10:03 | PM.HPGS ---
History of Present Illness History of Present Illness Consent: Risks, benefits, and alternatives have been discussed and questions answered. Patient agrees to proceed with procedure. Chief complaint: positive cologuard Narrative: Vadim Evangelista is a 73 year old male here for first colonoscopy, had + cologuard Review of Systems Constitutional: Constitutional: Denies headache(s) and Denies weakness Eyes: Eyes: Denies blurry vision ENT: Reports Normal hearing present, Denies headache(s) and Denies neck pain Cardiovascular: Cardiovascular: Denies chest pain and Denies dyspnea Respiratory: Respiratory: Denies dyspnea Gastrointestinal: Gastrointestinal: Reports no additional gastrointestinal complaints Genitourinary: Genitourinary: Denies dysuria Musculoskeletal: Musculoskeletal: Denies neck pain Integumentary/Breasts: Skin/Breast: Denies dry skin Neurologic: Reports Normal hearing present, Denies headache(s) and Denies weakness Psychiatric: Psychiatric: Denies anxiety Endocrine: Endocrine: Denies change in body appearance Hematologic/Lymphatic: Hematologic/Lymphatic: Denies easy bleeding Allergic/Immunologic: Allergic/Immunologic: Denies urticaria PMFSH Past Medical History Medical History (Updated 08/30/23 @ 10:04 by Sergei Garcia MD) Enlarged prostate Positive colorectal cancer screening using Cologuard test Surgical History Surgical History History of prostate surgery Family History Family History Mother Family history of malignant neoplasm of ovary, Onset Age: 65 Patient's mother is , Onset Age: 65 Father Patient's father is , Onset Age: 70 Other Family history of allergic disorder Hypertension Social History Social History Smoking status: Never smoker Second hand tobacco smoke exposure: Yes Alcohol intake: current Drinks per week: 7 Alcohol use details: vodka at bedtime for sleep Substance use: never Substance use type: does not use Lack of Transportation: No Lack of Food: Never True Current Housing: I Have Housing Concerned About Future Housing: No Difficulty Paying Gas/Electric Bills: No Difficulty Paying for Meds: No Currently Unemployed: No Education: High School Diploma/GED Difficulty w/ Childcare or Family Care: No Living arrangements: with family Gender identity (if verbalized by the patient): Male Spiritual care concerns: No Meds Home Medications and Allergies Home Medications Medication Instructions Recorded Confirmed Type clopidogrel 75 mg tablet (Plavix) 75 mg PO DAILY 10/12/19 08/30/23 History azelastine 137 mcg (0.1 %) nasal 2 spray intranasal Q12H #30 mL 04/15/23 08/30/23 Rx spray aerosol carvedilol 25 mg tablet 25 mg PO Q12H #180 tabs 04/15/23 08/30/23 Rx fluticasone propionate 50 2 spray intranasal DAILY PRN nasal 04/16/23 08/30/23 Rx mcg/actuation nasal congestion #15.8 mL spray,suspension tamsulosin 0.4 mg capsule 0.4 mg PO DAILY #90 caps 04/26/23 08/30/23 Rx amlodipine 5 mg tablet 5 mg PO DAILY #90 tabs 07/02/23 08/30/23 Rx atorvastatin 40 mg tablet 40 mg PO DAILY #90 tabs 07/20/23 08/30/23 Rx lisinopril 40 mg tablet 40 mg PO DAILY #90 tabs 07/20/23 08/30/23 Rx Allergies Allergy/AdvReac Type Severity Reaction Status Date / Time No Known Allergies Allergy Unknown Verified 08/30/23 09:48 Vital Signs Vital Signs - 24 hr 08/30/23 09:51 Temperature 97.2 F L Pulse Rate 64 Respiratory Rate 16 Blood Pressure 157/49 H Pulse Oximetry 97 Oxygen Delivery Room Air Exam Const: General: comfortable and no acute distress HENMT: Face/Nose/Sinus: Normal nares present Eyes: General: appearance normal, both eyes and all related structures Neck: Neck: no JVD Resp: Auscultation: calista
--- NOTE | 2023-08-30 10:07 | WPDANESEPPF ---
Anes - Initial Pre Proc Eval Procedure: Operation Date: 08/30/23 11:00 Proposed Procedures p Colonoscopy - Sergei Garcia MD Date/Time: 08/30/23 10:07 Surgeon: Sergei Garcia MD Pre Op Diagnosis: positive cologuard Patient Data Age: 73 Gender: M Height: 1.7 m Weight: 94 kg Last Vital Signs Temp 97.2 F L 08/30/23 09:51 Pulse 64 08/30/23 09:51 Resp 16 08/30/23 09:51 BP 157/49 H 08/30/23 09:51 Pulse Ox 97 08/30/23 09:51 O2 Del Method Room Air 08/30/23 09:51 Allergies Allergy/AdvReac Type Severity Reaction Status Date / Time No Known Allergies Allergy Unknown Verified 08/30/23 09:48 Home Medications Medication Instructions Recorded Confirmed Type clopidogrel 75 mg tablet (Plavix) 75 mg PO DAILY 10/12/19 08/30/23 History azelastine 137 mcg (0.1 %) nasal 2 spray intranasal Q12H #30 mL 04/15/23 08/30/23 Rx spray aerosol carvedilol 25 mg tablet 25 mg PO Q12H #180 tabs 04/15/23 08/30/23 Rx fluticasone propionate 50 2 spray intranasal DAILY PRN nasal 04/16/23 08/30/23 Rx mcg/actuation nasal congestion #15.8 mL spray,suspension tamsulosin 0.4 mg capsule 0.4 mg PO DAILY #90 caps 04/26/23 08/30/23 Rx amlodipine 5 mg tablet 5 mg PO DAILY #90 tabs 07/02/23 08/30/23 Rx atorvastatin 40 mg tablet 40 mg PO DAILY #90 tabs 07/20/23 08/30/23 Rx lisinopril 40 mg tablet 40 mg PO DAILY #90 tabs 07/20/23 08/30/23 Rx Patient hx anesthesia problems: none Family hx anesthesia problems: none Results Review: All pre-operative results and documents have been reviewed as part of the pre-operative evaluation. [facility] Past Medical History Medical History (Updated 08/30/23 @ 10:04 by Sergei Garcia MD) Enlarged prostate Positive colorectal cancer screening using Cologuard test Surgical History Surgical History History of prostate surgery Family History Family History Mother Family history of malignant neoplasm of ovary, Onset Age: 65 Patient's mother is , Onset Age: 65 Father Patient's father is , Onset Age: 70 Other Family history of allergic disorder Hypertension Social History Social History Smoking status: Never smoker Second hand tobacco smoke exposure: Yes Alcohol intake: current Drinks per week: 7 Alcohol use details: vodka at bedtime for sleep Substance use: never Substance use type: does not use Lack of Transportation: No Lack of Food: Never True Current Housing: I Have Housing Concerned About Future Housing: No Difficulty Paying Gas/Electric Bills: No Difficulty Paying for Meds: No Currently Unemployed: No Education: High School Diploma/GED Difficulty w/ Childcare or Family Care: No Living arrangements: with family Gender identity (if verbalized by the patient): Male Spiritual care concerns: No Anes - Eval Final PreProcedure Day of Procedure 08/30/23 10:07 Patient weight: obese Heart: regular rate and rhythm Lungs: clear to auscultation Airway: Mallampati scale class II Neurological: alert and oriented Last oral intake: >/= 8 hours ASA classification: III Emergent: no Anesthetic plan: proceed Anesthesia type and monitoring: general GIVS and standard monitoring Results Review: All pre-operative results and documents have been reviewed as part of the pre-operative evaluation. Informed Consent: The patient's anesthetic plan and its attendant risks and benefits were discussed with the patient/family/POA. Questions were solicited and answers provided to the satisfaction of the patient/family/POA.
[2023-08-30 10:43] VITALS: BP 147/80; PULSE 62; RESP 20; O2SAT 97
[2023-08-30 10:53] VITALS: BP 146/82; PULSE 63; RESP 19; O2SAT 98
[2023-08-30 11:03] VITALS: BP 152/73; PULSE 60; RESP 19; O2SAT 99
== END 2023-08-30 11:20 | disposition home or self-care (01) ==
PROVIDERS: PCP Internal Medicine; Visit Provider Internal Medicine Gastroenterology
PROC: 0DJD8ZZ Inspection of Lower Intestinal Tract, Via Natural or Artificial Opening Endoscopic (ICD-10-PCS; CPT 45378; principal; 2023-08-30 11:00)
DX: R19.5 Other fecal abnormalities (principal); D12.2 Benign neoplasm of ascending colon; D12.3 Benign neoplasm of transverse colon; D12.4 Benign neoplasm of descending colon; D12.5 Benign neoplasm of sigmoid colon; K57.30 Diverticulosis of large intestine without perforation or abscess without bleeding; E66.9 Obesity, unspecified; Z68.32 Body mass index [BMI] 32.0-32.9, adult; Z79.02 Long term (current) use of antithrombotics/antiplatelets
CPT/HCPCS: 45385; 88305; J2704; J7120

== ENCOUNTER 2025-08-22 11:58 | Outpatient (CLI) | payer MEDICARE, SELFPAY ==
--- NOTE | ~2025-08-22 | XR_ITS ---
Examination: XR chest 2V Clinical History: R06.02 - Shortness of breath Comparison: X-rays 04/10/2015 Technique: PA and Lateral Findings: Cardiomediastinal silhouette normal size and configuration. Lungs clear. No acute bony abnormality. IMPRESSION: 1. No acute cardiopulmonary findings. Reviewed, dictated and finalized at location R.
--- OUTSIDE RECORDS SUMMARY | 2025-08-22 12:07 | XMS_ITS | Clinical Summary ---
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 This disclosure is being madepursuant to the Care Everywhere program and may not contain all information available regarding this patient. Last updated 18.[email or web address] Allergies No known active allergies Medications * Be aware that medications may not be up to date on this document. Alwaysverify current medications with the patient. lisinopril (PRINIVIL; ZESTRIL) 20 MG tablet Take 20 mg by mouth once daily Active clopidogrel (PLAVIX) 75 MG tablet Take 75 mg by mouth once daily Active atorvastatin (LIPITOR) 40 MG tablet Take 40 mg by mouth at bedtime Active tamsulosin (FLOMAX) 0.4 MG capsule Take 0.4 mg by mouth once daily At the same time every day after a meal. 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 Temperature 36.9 C (98.4 F) 10/09/2019 11: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 Respiratory Rate 16 10/09/2019 11: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 Oxygen Saturation 98% 10/09/2019 11: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 Inhaled Oxygen Concentration - - Weight 99.8 kg (220 lb) 10/09/2019 11: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 Height 170.2 cm (5' 7) 10/09/2019 11: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 Body Mass Index 34.46 10/09/2019 11: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 Plan of Treatment Health Maintenance Due Date Last Done Comments HEPATITIS C SCREENING 02/04/1967 DTAP/TDAP/TD VACCINES (1 - Tdap) 02/09/1968 PNEUMOCOCCAL VACCINE 50+ (1 of 1 - PCV) 1999 ZOSTER VACCINE (1 of 2) 1999 SCREENING FOR DIABETES 10/09/2019 Respiratory Syncytial Virus (RSV) Vaccine Pt: or over 60 yrs (1 - 1-dose 75+ series) 02/09/2024 DEPRESSION SCREENING 11/21/2024 MEDICARE AWV CALENDAR YEAR 2024 COVID-19 VACCINE ( - 2023-2 5 season) 2025 INFLUENZA VACCINE (#1) 2025 HEPATITIS B VACCINE Aged Out No longe r eligible based on patient's age to complete this topic HIB VACCINE Aged Out No longer eligi ble based on patient's age to complete this topic HPV VACCINE Aged Out No longer eligi ble based on patient's age to complete this topic MENINGOCOCCAL (Group B) VACC INE SHARED DECISION-MAKING Aged Out No longer eligibl e based on patient's age to complete this topic MENINGOCOCCAL GROUPS A/C/Y/W VACCINE Aged Out No longer eligible b ased on patient's age to complete this topic Insurance AETNA MEDICARE ADV AETNA MEDICARE ADV
--- OUTSIDE RECORDS SUMMARY | 2025-08-22 12:08 | XMS_ITS | Clinical Summary ---
Author Organization [facility] Address Count includes the [facility] [place] [address] Care Team Providers Care Sharepoint Engineer Name Role Phone Lane Santillan MD Primary Care Provider [phone] Vadim Enciso MD Unavailable [phone] Mulugeta Macias MD Unavailable [phone] Allergies Active Allergy Reactions Criticality Noted Date Comments Seasonal Other (see comment) 10/02/2021 Grass cutting causes headache, earache, breathing restrictions Medications atorvastatin 40 MG tabletIndications: hyperlipidemia Take 40 mg by mouth nightly at bedtime. Indications: hyperlipidemia 04/14/20 19 Active tamsulosin 0.4 MG CapIndications:Pro state Take 0.4 mg by mouth nightly. Indications: Prostate 1 04/13/20 19 Active diphenhydrAMINE 25 MG tablet Take 25 mg by mouth every 6 (six) hours as needed for Allergies (Allergies/ breathing). Active fluticasone propionate 50 MCG/ACT nasal spray 1 spray by Each Nostril route daily as needed for Allergies. Active ipratropium 0.03 % nasal sprayIndications:r hinitis 2 sprays by Nasal route 3 (three) times daily as needed for Rhinitis. Indications: rhinitis 05/17/20 20 Active sertraline 50 MG tabletIndications: antidepressant Take 50 mg by mouth daily. Indications: antidepressant 03/16/20 21 Active acetaminophen 500 MG tablet Take 1,000 mg by mouth every 6 (six) hours as needed for Pain. Active lisinopril 40 MG tablet Take 40 mg by mouth daily. Active carvedilol 25 MG tablet Take 25 mg by mouth 2 (two) times daily. Active Loratadine (CLARITIN OR) Take 1 tablet by mouth daily. Active acetaminophen-code ine (TYLENOL #3) 300-30 MG tablet Take 1 tablet by mouth every 4 (four) hours as needed. 03/08/20 Active amLODIPine (NORVASC) 5 MG tablet Take 5 mg by mouth daily. 07/28/20 Active amoxicillin (AMOXIL) 500 MG capsule TAKE 2 CAPSULES BY MOUTH NOW, THEN THEN 1 EVERY 8 HOURS 03/08/20 Active clindamycin (CLEOCIN) 300 MG capsule TAKE ONE CAPSULE EVERY 6 HOURS UNTIL GONE 03/25/20 Active clopidogrel (PLAVIX) 75 MG tablet Take 75 mg by mouth daily. 05/20/20 Active HYDROcodone-acetam inophen (NORCO) 5-325 MG tablet TAKE ONE TABLET BY MOUTH EVER 4-6 HOURS NEEDED FOR PAIN 03/25/20 Active ibuprofen (MOTRIN) 600 MG tablet Take 600 mg by mouth every 4 (four) hours as needed. 03/08/20 Active ondansetron (ZOFRAN-ODT) 4 MG disintegrating tablet TAKE 1 TABLET BY MOUTH EVERY 6 HOURS NEEDED FOR NAUSEA AND VOMITING 03/16/20 Active traMADol (ULTRAM) 50 MG tablet Take 50 mg by mouth every 6 (six) hours as needed. 03/04/20 Active Active Problems Problem Noted Date Diagnosed Date Hematuria 04/28/2021 Benign prostatic hyperplasia with nocturia 07/18 History of urinary retention 07/18/2019 Coronary artery disease invo lving [place] coronary artery of [place] heart without angina pectoris 12/01/2017 History of coronary artery stent placement 12/01 Family History Medical History Relation Comments No Known Problems Daughter Cancer Maternal Grandfather of mohinder g cancer Cancer Maternal Grandmother of fe male cancer Cancer Mother Relation Status Comments Daughter Alive Father (Age in his 60s) p atient was estranged from his father Maternal Grandfather Maternal Grandmother Mother (Age 65) ovarian CA Son Alive adopted Social History Tobacco Use Types Packs/Day Years Used Date Smoking Tobacco: Never Smokeless Tobacco: Never Tobacco Cessation:Counseling Given: No Alcohol Use Standard Drinks/Week Comments Yes 4 (1 standard drink = 0.6 oz pure alcohol) occasionaly, amount varries, vodka or whiskey PHQ-2 Answer Date Recorded PHQ-2 Score - If the patient scores above 3, please move on to questions 3-9 0 02/22/2022 Sex and Gender Information Value Date Recorded Sex Assigned at Male 04/28/2021 7:25 PM CDT Legal Sex Male 3:37 PM CDT Gender Identity Male 04/28/2021 7:25 PM CDT Sexual Orientation Straight 04/28/2021 7: 25 PM CDT Last Filed Vital Signs Vital Sign Reading Time Taken Comments Blood Pressure 161/83 08/19/2022 6:00 PM CDT Pulse 61 08/19/2022 6:00 PM CDT Temperature 36.3 C (97.4 F) 08/19/2022 3:31 PM CDT Respiratory Rate 19 08/19/2022 6:00 PM CDT Oxygen Saturation 96% 08/19/2022 6:00 PM CDT Inhaled Oxygen Concentration - - Weight 96.7 kg (213 lb 3 oz) 08/19/2022 3:31 PM CDT Height 170.2 cm (5' 7) 08/19/2022 3:31 PM CDT Body Mass Index 33.39 08/19/2022 3:31 PM CDT Plan of Treatment Health Maintenance Due Date Last Done Comments ASCVD Statin 1950 Hepatitis C 1968 DTaP, Tdap and Td Vaccines ( 1 - Tdap) 02/09/1968 Pneumococcal Vaccine: 50+ Years (1 of 2 - PCV) 02/09/1968 Zoster Vaccines (1 of 2) 1999 Annual Medicare Wellness Visit 2014 ASCVD LDL 04/29/2022 04/29/2021 RSV Immunization or 60+ Years (1 - 1-dose 75+ series) 02/09/2024 COVID-19 Vaccine (4 - 2024-2 6 season) 2025 08/18/2021, 02/06/2021, 01/15/2021 Influenza Adult (#1) 2025 Meningococcal B Vaccine Aged Out No l onger eligible based on patient's age to complete this topic Meningococcal Vaccine Aged Out No yury bartolo eligible based on patient's age to complete this topic RSV Immunizations Under 20 Months Aged Out No longer eligible b ased on patient's age to complete this topic Goals Goal Patient Goal Type Associated Problems Recent Progress Patient-Stated? Author Health - patient able to perform ADLs independently General No Livia Rizvi, RADIO PROGRAM DIRECTOR Safety - demonstrates understanding of home safety measures General No Ariela Mccormick, senior business broker Procedure Name Priority Date/Time Associated Diagnosis Comments LIPID PANEL Routine 04/29/2021 6:45 AM CDT from Last 3 Months or Most Recently Relevant to Health Maintenance Results * (ABNORMAL) LIPID PANEL (04/29/2021 6:45 AM CDT) CHOLESTEROL 98 <200 MG/DL 04/29/2021 7:32 AM CDT [facility] TRIGLYCERIDES 99 <150 MG/DL 04/29/2021 7:32 AM CDT [facility] HDL 32(L) >40.0 MG/DL 04/29/2021 7:32 AM CDT [facility] LDL (CALCULATED) 46 <100 MG/DL 04/29/20 7:32 AM CDT [facility] NON HDL CHOLESTEROL 66 <130 MG/DL 04/29 7:32 AM T [facility] CHOL/HDL RATIO 3.1 0.0 - 4.5 04/29/2021 7:32 AM T [facility] VLDL CALCULATION 20 5 - 55 MG/DL 04/29/2021 7:32 AM CDT [facility] LIPID INTERPRETATION 04/29/2021 7:32 AM T [facility] Comment: NIH CONCENSUS REPORT RECOMMENDATIONS: ADULT CHILD LOW RISK: CHOLESTEROL <200 <170 TRIGLYCERIDE <150 --- HDL >=60 --- LDL <100 <110 BORDERLINE: CHOLESTEROL 200-239 170-199 TRIGLYCERIDE 150-199 --- HDL 40-59 --- LDL 100-159 110-129 HIGH RISK: CHOLESTEROL >=240 >=200 TRIGLYCERIDE >=200 --- HDL <40 --- LDL >=160 >=130 04/29/2021 6:45 AM CDT us [facility] [place] Final Resul t [facility] [address] [place] [address], from Last 3 Months or Most Recently Relevant to Health Maintenance Additional Health Concerns Infection Onset Date Last Indicated MRSA Comment:04/29/2021 +MRSA Blood 05/01/2021 05/01/2021 Insurance AETNA MEDICARE Advance Directives * Full Code (Latest Code Status on File) Date Activated Date Inactivated Comments 10/06/2021 10:11 AM 10/07/2021 7:27 PM * Full Code Date Activated Date Inactivated Comments 05/06/2021 5:46 PM 08/29/2021 4:18 PM * Full Code Date Activated Date Inactivated Comments 04/29/2021 12:41 AM 05/05/2021 7:21 PM * Full Code Date Activated Date Inactivated Comments 09/18/2019 6:29 PM 09/20/2019 8:34 PM Care Teams Sharepoint Engineer Relationship Specialty Start Date End Date Lane Santillan MD [address] [place] [address] PCP - General INTERNAL MEDICINE 04/25/19 Vadim Enciso MD [address] [place] [address] CARDIOVASCULAR DISEASE 09/10/19 Mulugeta Macias MD [address] [place] [address] Consulting Physician UROLOGY 09/09/19
--- OUTSIDE RECORDS SUMMARY | 2025-08-22 12:08 | XMS_ITS | Encounter Summary ---
Author Organization [facility] Address [address] [place] [address] Phone Care Team Providers Care Electric Track Switch Maintainer Name Role Phone Lane Santillan MD Unavailable [phone] Diogenes Persaud DO Primary Care Provider [phone] Reason for Visit * Reason Onset Date Comments follow up 08/21/2025 Encounter Details Date Type Department Care Team (Late st Contact Info) Description 08/21/2025 Telephone [facility] Medicine Dermatology [address] [place] [address] Sandip Aviles PA [address] [place] [address] follow up Social History Tobacco Use Types Packs/Day Years Used Date Smoking Tobacco: Never Smokeless Tobacco: Never Alcohol Use Standard Drinks/Week Comments Yes 0 (1 standard drink = 0.6 oz pur e alcohol) Sex and Gender Information Value Date Recorded Sex Assigned at Not on file 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 documented in this encounter Plan of Treatment Not on file documented as of this encounter Visit Diagnoses Not on filedocumented in this encounter Care Teams Electric Track Switch Maintainer Relationship Specialty Start Date End Date Diogenes Persaud DO [address] [place] [address] PCP - General Internal Medicine 06/19/25 Lane Santillan MD [address] [place] [address] 01/23/18 documented as of this encounter
--- OUTSIDE RECORDS SUMMARY | 2025-08-22 12:08 | XMS_ITS | Clinical Summary ---
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 Gender Identity Not on file Sexual Orientation Not on file Plan of Treatment Health Maintenance Due Date Last Done Comments Hepatitis C Virus (HCV) Screening 1950 TdaP Immunization 1950 Pneumococcal Immunization (5 0+ years) (1 of 1 - PCV) 1999 Zoster Immunization (1 of 2) 1999 Respiratory Syncytial Virus (RSV) Immunization (Adult) (1 - 1-dose 75+ series) 02/09/2024 Influenza Immunization (#1) 2025 SARS-COV-2 Immunization (2 - season) 2025 01/15/2021 Hepatitis B Immunization Aged Out No longer eligible based on patient's age to complete this topic Human Papillomavirus (HPV) Immunization Aged Out No longer eligible b ased on patient's age to complete this topic Meningococcal Immunization (ACWY) Aged Out No longer eligible based on patient's age to complete this topic Rotavirus Immunization Aged Out No lo nger eligible based on patient's age to complete this topic
--- OUTSIDE RECORDS SUMMARY | 2025-08-22 12:08 | XMS_ITS | Clinical Summary ---
Author Organization [facility] [address] Address [address] [place] [address] Care Team Providers Care Implementation Specialist Payroll Name Role Phone Lnae Santillan MD Unavailable [phone] Diogenes Persaud DO Primary Care Provider [phone] Allergies No known active allergies Medications acetaminophen ER (TYLENOL 8 HOUR) 650 mg 8 hr tablet take 2 tablet (1300MG) by oral route 2 times every day 0 2 Active atorvastatin (LIPITOR) 40 mg tablet Take 1 tablet (40 mg total) by mouth daily 90 tablet 2 9 Active sertraline (ZOLOFT) 25 mg tablet Take 1 tablet (25 mg total) by mouth daily 1 Active cetirizine (ZyrTEC) 10 mg tablet TAKE 2 TABLETS BY MOUTH EVERY DAY IN THE EVENING 5 Active amLODIPine (NORVASC) 5 mg tablet Take 1 tablet (5 mg total) by mouth daily 2 Active valsartan-hydro chlorothiazide (DIOVAN-HCT) 320-12.5 mg per tablet Take 1 tablet by mouth daily 5 Active fexofenadine (ROSETTA) 180 mg tablet TAKE 2 TABLETS SWALLOW WHOLE WITH WATER DO NOT TAKE WITH FRUIT JUICES. ORALLY IN THE MORNING 5 Active hydrOXYzine (VISTARIL) 25 mg capsule Take 2 capsules (50 mg total) by mouth nightly Active carvediloL (COREG) 25 mg tabletIndicatio ns:Elevated blood pressure reading TAKE 1 TABLET BY MOUTH TWICE A DAY WITH FOOD 180 tablet 2 5 Active clopidogreL (PLAVIX) 75 mg tablet TAKE 1 TABLET BY MOUTH EVERY DAY 90 tablet 2 5 Active triamcinolone (KENALOG) 0.1 % ointment Apply topically 2 (two) times a day 454 g 1 5 Active ketoconazole (NIZORAL) 2 % cream Apply topically 2 (two) times a day Rash to axillae (armpits) 30 g 5 09/13/20 25 Active predniSONE (DELTASONE) 20 mg tablet Take 3 tablets (60 mg) by mouth daily for 3 days, THEN 2 tablets (40 mg) daily for 3 days, THEN 1 tablet (20 mg) daily for 3 days, THEN 0.5 tablets (10 mg) daily for 3 days. 20 tablet 5 08/14/20 25 Active Problems Problem Noted Date Diagnosed Date Palpitations 06/17/2025 Coronary artery disease invo lving [place] coronary artery of [place] heart without angina pectoris 12/01/2017 History of coronary artery stent placement 12/01 Encounters Date Type Department Care Team Description 08/21/2025 Telephone [facility] Medicine Dermatology [address] [place] [address] [address] [place] [address] Sandip Aviles PA follow up 08/08/2025 Results Follow-Up [facility] Dermatology [address] [place] [phone] Sandip Aviles PA Surgical pathology 08/05/2025 Orders Only [facility] Medicine Pathology Outreach [address] [place] [address] Sandip Aviles PA Rash and nonspecific skin eruption 08/02/2025 10:00 AM CDT Office Visit [facility] Medicine Dermatology [address] [place] [address] [address] [place] [address] Sandip Aviles PA Rash and nonspecific skin eruption (Primary Dx); Pruritus, unspecified; Multiple excoriations; Intertrigo 06/19/2025 1:30 PM CDT Ancillary Procedure [facility] Cardiology [address] [facility] [address] [place] [phone] Palpitations 06/17/2025 1:45 PM CDT Office Visit [facility] Cardiology at [address] [place] [address] Vadim Enciso MD Coronary artery disease involving [place] coronary artery of [place] heart without angina pectoris (Primary Dx); History of coronary artery stent placement; Palpitations from Last 3 Months Family History Medical History Relation Name Comments Other Father Unknown; Ovarian cancer Mother Cancer, ovari an; Relation Name Status Comments Father Mother Social History Tobacco Use Types Packs/Day Years Used Date Smoking Tobacco: Never Smokeless Tobacco: Never Tobacco Cessation:Counseling Given: Not Answered Alcohol Use Standard Drinks/Week Comments Yes 0 (1 standard drink = 0.6 oz pur e alcohol) Sex and Gender Information Value Date Recorded Sex Assigned at Not on file 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 Gender Identity Not on file Sexual Orientation Not on file Obstetrics History Last Filed Vital Signs Vital Sign Reading Time Taken Comments Blood Pressure 118/76 06/17/2025 1:40 PM CDT Pulse 54 06/17/2025 1:40 PM CDT Temperature - - Respiratory Rate - - Oxygen Saturation 90% 06/17/2025 1:40 PM CDT Inhaled Oxygen Concentration - - Weight 93.1 kg (205 lb 4.8 oz) 06/17/2025 1:40 P M CDT Height 170.2 cm (5' 7) 06/17/2025 1:40 PM CDT Body Mass Index 32.15 06/17/2025 1:40 PM CDT Plan of Treatment Health Maintenance Due Date Last Done Comments Depression Screening 1950 Fall Risk Assessment 1950 Hepatitis C Screening 1950 Hepatitis B Screening 1967 Pneumococcal vaccine 65+ (1 of 1 - PCV) 1999 Zoster Vaccine (1 of 2) 1999 Well Visit 65+ 2014 Covid-19 Vaccine (5 - 2024-2 6 season) 2025 02/24/2022, 08/18/2021, 02/06/2021, Additional history exists Influenza Vaccine (#1) 2025 DTaP/Tdap/Td Vaccine (2 - Td or Tdap) 10/19/2032 10/19/2022 Procedures Procedure Name Priority Date/Time Associated Diagnosis Comments SURGICAL PATHOLOGY Routine 08/02/2025 12 :00 AM CDT Rash and nonspecific skin eruption HOLTER MONITOR 48 HR Routine 06/19/2025 1:49 PM CDT Palpitations from Last 3 Months Results * Surgical pathology (08/02/2025 12:00 AM CDT) Tissue (Skin, punch biopsy) 08/02/2025 08/05/2025 4:36 AM CDT [facility] - 08/07/2025 2:19 PM CDT EPIC results best viewed via link to PDF [facility] [address] [place] [address], [address], [place] [address] [email or web address] Note to Patients: This report may contain a detailed description of human tissue sent by a health care provider to the laboratory for pathologic evaluation. The content of this report is essential for diagnosis and may provide important critical findings. This information may be unfamiliar to patients to review without a medical professional present. It is advised that the patient review this report in the presence of a health care provider who can answer questions and explain the details. FINAL REPORT Patient Information: PATIENT NAME: VADIM NEIL SEX: M : 1950 (Age: 75) Specimen Information: COLLECTED: 08/02/2025 RECEIVED: 08/05/2025 REPORTED: 08/07/2025 Submitting Physician Information: LIA Enamorado [address], [address], [place] [address] , DERMATOPATHOLOGY REPORT RESULTS DIAGNOSIS: A. SKIN, RIGHT UPPER CHEST, PUNCH BIOPSY: SLIGHT SPONGIOTIC AND PERIVASCULAR DERMATITIS WITH EOSINOPHILS B. SKIN, RIGHT UPPER CHEST, BIOPSY FOR DIRECT IMMUNOFLUORESCENCE: NEGATIVE DIRECT IMMUNOFLUORESCENCE C. SKIN, LEFT UPPER ARM, PUNCH BIOPSY: SLIGHT SPONGIOTIC AND PERIVASCULAR DERMATITIS WITH MANY EOSINOPHILS Note: The features in these biopsies favor a dermal hypersensitivity reaction such at to drug or arthropod assault but it is difficult to entirely exclude a form of spongiotic/eczematous dermatitis. sxt/lac By this signature, I attest that the above diagnosis is based upon my personal examination of the slides(and/or other material indicated in the diagnosis). Nelli Banks M.D. Report Electronically Reviewed and Signed Out By Nelli Banks M.D. 08/07/2025 14:19:56 CLINICAL INFORMATION A-C. DHR, DH, ECZEMA SPECIMEN DATA MICROSCOPIC DESCRIPTION: A. There is a slight spongiosis and a superficial perivascular infiltrate of lymphocyte, histiocytes and eosinophils. Because dermatophyte infections can have similar findings, a PAS stain was performed to identify the presence of fungal organisms; it is negative for hyphae.(L30.8) B. The sections were reacted with antibodies to IgG, IgA, IgM, C3 and fibrinogen. Significant immunofluorescence staining is not seen. C. There is a slight spongiosis and a superficial perivascular infiltrate of lymphocyte, histiocytes and many eosinophils. Because dermatophyte infections can have similar findings, a PAS stain was performed to identify the presence of fungal organisms; it is negative for hyphae.(L30.8) GROSS DESCRIPTION: A. Received in a formalin-containing bottle is a cylindrical piece of pale jacobsen, finely scaling skin and adipose tissue measuring 0.4 by 0.4 by 0.4 cm. The surgical margin is inked blue. The specimen is sectioned into 2 pieces and submitted entirely in a single cassette. Due to shrinkage, measurements may be different than those at time of procedure. B. Received in Martín s fixative is a cylindrical piece of pale jacobsen, finely scaling skin and adipose tissue measuring 0.4 by 0.4 by 0.4 cm. The specimen is submitted for direct immunofluorescence study. C. Received in a formalin-containing bottle is a cylindrical piece of pale jacobsen, finely scaling, hair-bearing skin and adipose tissue measuring 0.4 by 0.4 by 0.5 cm. The surgical margin is inked blue. The specimen is sectioned into 2 pieces and submitted entirely in a single cassette. Due to shrinkage, measurements may be different than those at time of procedure. ag/dxv Clerical Data A; 31789, 57941 B; 1204, 36735, 90602, 15558, 63211 C; 85512, 48811 The characteristics of special, immunohistochemical, and immunofluorescence stains and in-situ hybridization tests performed by the [facility] were deemed acceptable in ongoing quality intern measures and in compliance with regulations drawn from the Clinical Laboratory Improvement Act lk3432 (CLIA '88). Control reactions for all stains performed were deemed adequate and appropriate by a pathologist prior to evaluation of patient tissue. Some diagnoses were rendered with the assistance of laboratory-developed tests utilizing analyte-specific reagents; the performance characteristic of these tests were determined by [facility] and are not cleared or approved by the [place] Food an Drug administration. Laboratory developed test may only be performed in a facility that is certified by the [facility] as a high-complexity laboratory under CLIA '88. These tests are used for clinical purposes and are not investigational. Sandip FITZGERALD LAB PATHOLOGY ORDERABL ES Final Result [facility]OP[facility]OLOGY CENTER [address] [place], [place] [address] * 48 HR Holter Monitor (06/19/2025 1:49 PM CDT) Anatomical Region Laterality Modality Electrocardiogra phy Narrative 07/01/2025 7:05 AM CDT AMBULATORY MANAGER STRATEGY & ACCOUNT REPORT Patient Name: Vadim Neil Date of : 1950 Requesting Physician: Fernie Date of interpretation: 07/01/25 Type of monitor : 48 hour Holter monitor Date of the study/Enrollment period: 06/19/2025 Indication: Palpitations/coronary artery disease Quality of the study: Favorable Interpretation: The basic rhythm is sinus with normal [place], QRS and QT intervals. The heart rate varies from a minimum of 46 to a maximum of 100 with an average rate of 60. There were no abrupt pauses there were no abnormalities of AV conduction observed. Supraventricular ectopic activity was rare PACs occurring less than 1%. There were no runs of SVT in no atrial fibrillation was seen. Ventricular ectopic activity was also rare with single PVCs occurring less than 1% only 10 PVCs were seen in the 48 hour study. All of these were single complexes there were no ventricular couplets or runs. No symptoms were reported by the patient in the diary Conclusions: Unremarkable 48 hour Holter monitor Voice recognition software was used to complete this document, therefore, smoking tobacco packer hand variances may occur. Vadim Enciso MD [facility] 07/01/25 Vadim Enciso MD [facility] CARDIAC SERVICES PROC EDURES Final Result from Last 3 Months Insurance AETNA MEDICARE Care Teams Implementation Specialist Payroll Relationship Specialty Start Date End Date Diogenes Persaud DO [address] [facility] [address] [place] [address] PCP - General Internal Medicine 06/19/25 Lane Santillan MD [address] [facility] [address] [place] [address] 01/23/18
--- OUTSIDE RECORDS SUMMARY | 2025-08-22 12:08 | XMS_ITS | Encounter Summary ---
Author Organization [facility] [employer] [facility] Address [address] [place] [address] Phone Care Team Providers Care Creche Attendant Name Role Phone Lane Santillan MD Unavailable [phone] Diogenes Persaud DO Primary Care Provider [phone] Encounter Details Date Type Department Care Team (Late st Contact Info) Description 08/08/2025 Results Follow-Up [facility] Medicine Dermatology [address] [facility] [address] [place] [address] Sandip Aviles PA [address] [id number] Surgical pathology Social History Tobacco Use Types Packs/Day Years Used Date Smoking Tobacco: Never Smokeless Tobacco: Never Alcohol Use Standard Drinks/Week Comments Yes 0 (1 standard drink = 0.6 oz pur e alcohol) Sex and Gender Information Value Date Recorded Sex Assigned at Not on file Legal Sex Male 2:22 AM [employer]JECT CONSULT[employer] Gender Identity Not on file Sexual Orientation Not on file documented as of this encounter Miscellaneous Notes * Result Encounter Note - Sandip Aviles PA - 08/12/2025 9:32 AM CDT Updated patient and his wive on biopsy results Dermal hypersensitivity reaction Potential drug triggers identified on his med list (losartan/HCTC followed by amlodipine followed by atorvastatin) ACEi and ARB classes are frequent causes, he switched from ACEi to ARB/HCTZ due to rash but never improved He will discuss with his PCP If he is unable to discontinue meds we can consider dupixent * Telephone Encounter - Sandip Aviles PA - 08/09/2025 3:58 PM CDT Called no answer at both M and H numbers, LVM, will attempt tuesday * Telephone Encounter - Sandip Aviles PA - 08/09/2025 1:50 PM CDT Called no answer LVM, will attempt later today * Telephone Encounter - Sandip Aviles PA - 08/08/2025 10:51 AM CDT Called no answer LVM, will attempt later today documented in this encounter Plan of Treatment Not on file documented as of this encounter Visit Diagnoses Not on filedocumented in this encounter Care Teams Creche Attendant Relationship Specialty Start Date End Date Diogenes Persaud DO [address] [place] [address] PCP - General Internal Medicine 06/19/25 Lane Santillan MD [address] [place] [address] 01/23/18 documented as of this encounter
== END 2025-08-22 11:59 | disposition home or self-care (01) ==
PROVIDERS: PCP Internal Medicine; Visit Provider Internal Medicine
DX: R06.02 Shortness of breath (principal)
CPT/HCPCS: 71046